=== PATIENT | male | born 1985 | race African-American/Black ===

== ENCOUNTER 2018-09-01 08:43 | Emergency (ER) | payer SELFPAY ==
[~2018-09-01] VITALS: Ht 175.3 cm; Wt 65.8 kg
[2018-09-01 08:50] VITALS: BP 141/85
[2018-09-01] MEDS ORDERED: HYDR-2758 PO (09:24)
[2018-09-01] MEDS ORDERED: AMOX1TAB61 PO (09:24)
[2018-09-01] MEDS ORDERED: NAPR-514 PO (09:24)
--- NOTE | 2018-09-01 09:25 | PHYS DOC ---
Past Medical History Past Medical History: No Pertinent History, HIV Past Surgical History: Appendectomy Alcohol Use: Rarely Drug Use: None Adult General Chief Complaint Chief Complaint: FACE PAIN HPI HPI Patient is a 33 year old AA male who presents to the ER with complaints of RLQ dental pain for the last 4 days that has increased over the last 2 days. Pt currently reports the pain as an 8/10 on the pain scale. He reports pus drainage and foul odor for the last 2 days. He denies any fever, difficulty breathing, throat swelling, nausea, or vomiting. Review of Systems Review of Systems Constitutional: Denies fever or chills [] HENT: Denies nasal congestion or sore throat, reports RLQ dental pain with pus drainage and foul smelling breath Respiratory: Denies cough or shortness of breath [] GI: Denies nausea or vomiting Integument: Denies rash or skin lesions [] Neurologic: Denies headache, focal weakness or sensory changes [] All other systems were reviewed and found to be within normal limits, except as documented in this note. Allergies Allergies Allergies Coded Allergies Type Severity Reaction Last Updated Verified No Known Drug Allergies 09/01/18 No Physical Exam Physical Exam Constitutional: Well developed, well nourished, no acute distress, non-toxic appearance. [] HENT: Normocephalic, atraumatic, bilateral external ears normal, oropharynx moist, no oral exudates, nose normal; diffuse dental decay with abscess noted in RLW that is draining bloody pus, mild R sided facial swelling [] Eyes: PERRLA, conjunctiva normal, no discharge. [] Neck: Normal range of motion, no tenderness, supple, no stridor. [] Cardiovascular:Heart rate regular rhythm, no murmur [] Lungs & Thorax: Bilateral breath sounds clear to auscultation [] Skin: Warm, dry, no erythema, no rash. [] Neurologic: Alert and oriented X 3, normal motor function, normal sensory function, no focal deficits noted. [] Psychologic: Affect normal, judgement normal, mood normal. [] Current Patient Data Vital Signs Vital Signs Date Time Temp Pulse Resp B/P (MAP) Pulse Ox O2 Delivery O2 Flow Rate FiO2 09/01/18 08:50 98.4 99 16 141/85 (103) 99 Room Air 98.4 EKG EKG [] Radiology/Procedures Radiology/Procedures [] Course & Med Decision Making Course & Med Decision Making Pertinent Labs and Imaging studies reviewed. (See chart for details) Dx: dental abscess, dental pain with infected lillian Rx for augmentin, naproxen, and norco written. Dental referral list provided. Patient verbalized an understanding of home care, medications, follow-up, and return to ED instructions and was in agreement with the plan of care. Staff Physician Addendum: I was working in the ER during the course of this patient's visit. I was available for consultation as needed, but I was not directly involved in the care of this patient. [] Dragon Disclaimer Dragon Disclaimer This electronic medical record was generated, in whole or in part, using a voice recognition dictation system. Departure Departure Impression: Primary Impression: Dental abscess Additional Impression: Pain due to dental caries Disposition: HOME, SELF-CARE Condition: STABLE Referrals: NO PCP (PCP) Patient Instructions: Dental Abscess, Dental Caries Additional Instructions: Fill prescriptions and use as directed. Follow up with a dentist using the referral list provided. Return to the ER if your symptoms worsen. Scripts Hydrocodone Bit/Acetaminophen (HYDROCODONE-APAP 5-325 ) 1 Each Tablet 1 TAB PO PRN Q6HRS PRN for PAIN for 2 Days, #8 TAB 0 Refills Prov: JENNIFER RAYA ADMINISTRATIVE CLERK 09/01/18 Naproxen (NAPROXEN) 500 Mg Tablet 500 MG PO BID for 10 Days, #20 TAB 0 Refills Prov: JENNIFER RAYA APRN 09/01/18 Amoxicillin/Potassium Clav (AUGMENTIN 875-125 TABLET) 1 Each Tablet 1 TAB PO BID, #20 TAB Prov: JENNIFER RAYA ADMINISTRATIVE CLERK 09/01/18 Problem Qualifiers JENNIFER RAYA APRN Sep 01, 2018 09:25 MANUEL TYLER MD Sep 01, 2018 11:59
== END 2018-09-01 09:42 | disposition home or self-care (01) ==
LOC: ER 08:43
DX: K04.7 Periapical abscess without sinus (principal); K02.9 Dental caries, unspecified
CPT/HCPCS: 99283

== ENCOUNTER 2022-04-10 19:00 | Emergency (ER) | payer SELFPAY ==
[~2022-04-10] VITALS: Ht 175.3 cm; Wt 68.0 kg
[~2022-04-10 19:00] MED LIST: AMOX1TAB61 PO; HYDR-2761 PO; NAPR-514 PO
[2022-04-10 19:07] VITALS: BP 108/67
[2022-04-10] MEDS ORDERED: SULF1TAB24 PO (19:15)
--- NOTE | 2022-04-10 19:21 | PHYS DOC ---
Past Medical History Past Medical History: No Pertinent History, HIV Past Surgical History: Appendectomy Smoking Status: Current Every Day Smoker Alcohol Use: Rarely Drug Use: None General Adult EDM: Chief Complaint: ABSCESS HPI: HPI: Patient is a 36 year old male who presents with 3 days saw a spider on his abdomen and smashed it. He states that it bit him. Patient states that the area has become tender, hard and began draining a large amount of thick whitish fluid. He denies fever, body aches, nausea, vomiting, diarrhea, headache or dizziness. Patient states he began taking antibiotic he had leftover from a dental abscess the last couple days. HIV past medical history. Afebrile. Rates his discomfort at a 8 out of 10. Review of Systems: Review of Systems: Constitutional: Denies fever or chills. [] Eyes: Denies change in visual acuity. [] HENT: Denies nasal congestion or sore throat. [] Respiratory: Denies cough or shortness of breath. [] Cardiovascular: Denies chest pain or edema. [] GI: + abdominal pain due to abscess, denies nausea, vomiting, bloody stools or diarrhea. [] : Denies dysuria. [] Musculoskeletal: Denies back pain or joint pain. [] Integument: Denies rash. +Abscess [] Neurologic: Denies headache, focal weakness or sensory changes. [] Endocrine: Denies polyuria or polydipsia. [] Lymphatic: Denies swollen glands. [] Psychiatric: Denies depression or anxiety. [] Heart Score: C/O Chest Pain: No Allergies: Allergies: Allergies Coded Allergies Type Severity Reaction Last Updated Verified No Known Drug Allergies 09/01/18 No Physical Exam: PE: Constitutional: Well developed, well nourished, no acute distress, non-toxic appearance. [] HENT: Normocephalic, atraumatic, bilateral external ears normal, oropharynx moist, no oral exudates, nose normal. [] Eyes: PERRLA, EOMI, conjunctiva normal, no discharge. [] Neck: Normal range of motion, no tenderness, supple, no stridor. [] Cardiovascular:Heart rate regular rhythm, no murmur [] Lungs & Thorax: Bilateral breath sounds clear to auscultation [] Abdomen: Bowel sounds normal, soft, no tenderness, no masses, no pulsatile masses. [] Skin: Warm, dry, no erythema, no rash. Abscess to mid abdomen that is draining [] Back: No tenderness, no CVA tenderness. [] Extremities: No tenderness, no cyanosis, no clubbing, ROM intact, no edema. [] Neurologic: Alert and oriented X 3, normal motor function, normal sensory function, no focal deficits noted. [] Psychologic: Affect normal, judgement normal, mood normal. [] EKG: EKG: [] Radiology/Procedures: Radiology/Procedures: [] Course & Med Decision Making: Course & Med Decision Making Pertinent Labs and Imaging studies reviewed. (See chart for details) See HPI. Alert and oriented x4. Ambulatory steady gait. Skin pink warm and dry. Abscessed area is hard and draining. Skin around the area is hard and with slight redness. Afebrile and nonseptic appearing. Patient does have HIV I am going to cross cover him with Bactrim and Keflex. Patient states that he does not get treatment for HIV because his partner that did went into kidney failure. [] Junion Disclaimer: Adiel Disclaimer: This electronic medical record was generated, in whole or in part, using a voice recognition dictation system. Departure Departure Impression: Primary Impression: Abscess Disposition: 01 HOME / SELF CARE / HOMELESS Condition: STABLE Referrals: NO PCP (PCP) Patient Instructions: Abscess Additional Instructions: Follow up with primary care provider this coming week. Return to the ED after 48 hours of antibiotic if worsening. Take medication as prescribed and with food. Take the antibiotics until they are fully gone even if you are feeling better. You are immunocompromised and therefore at higher risk of becoming deathly ill. Take Ibuprofen for pain. Use warm compress. Keep covered with bandage. Dont squeeze on the area. If you begin to run a fever or you begin have a lot of redness and worsening infection, return to the ED. Scripts Cephalexin (KEFLEX) 500 Mg Capsule 1 CAP PO QID, #40 CAP Prov: AGA AARON APRN 04/10/22 Sulfamethoxazole/Trimethoprim (BACTRIM DS TABLET) 1 Each Tablet 1 TAB PO BID for 10 Days, #20 TAB 0 Refills Prov: AGA AARON APRN 04/10/22 AGA AARON APRN April 10, 2022 19:21
[2022-04-10] MEDS ORDERED: CEPH500C PO (19:25)
== END 2022-04-10 19:45 | disposition home or self-care (01) ==
LOC: ER 19:00
DX: L02.211 Cutaneous abscess of abdominal wall (principal); F17.200 Nicotine dependence, unspecified, uncomplicated
CPT/HCPCS: 99283